=== PATIENT | female | born 1945 | race Caucasian/White ===

== ENCOUNTER → 2017-01-04 | Day surgery (SDC) | payer MEDICARE ==
[~2017-01-04] VITALS: Ht 170.2 cm; Wt 55.3 kg
[~2017-01-04] MED LIST: 0.9% Sodium Chloride 1,000 ML IV SCH; DULO60CA42 PO; Sodium Chloride LOK Flush 10 mL Syringe IV PRN; fentaNYL-PF 50 mCg/mL 2 mL Inj IVPUSH PRN; fentaNYL-PF 50 mCg/mL 2 mL Inj ONE
[2017-01-04 10:47] VITALS: BP 127/57; PULSE 92; RESP 14; O2SAT 99
[2017-01-04 12:14] VITALS: BP 123/61; PULSE 85; RESP 16; O2SAT 98
[2017-01-04 12:25] VITALS: BP 122/52; PULSE 83; RESP 16; O2SAT 96
[2017-01-04 12:33] VITALS: BP 107/47; PULSE 88; RESP 16; O2SAT 96
--- NOTE | 2017-01-04 13:20 | ENDO ---
[address] [address] ENDOSCOPY PROCEDURE PATIENT: CASANDRA JOYNER : 1945 MR#: [id number] ADMIT: 01/04/2017 JOB ID: [id number] DATE: 01/04/2017 PRIMARY PROVIDER: Brianna Pollock. PROCEDURE: Colonoscopy with biopsies. INDICATIONS: A 71-year-old female with diarrhea of uncertain etiology. EQUIPMENT: PCF H 180 AL. SEDATION: 1. 6 mg Versed. 2. 100 mcg fentanyl. COMPLICATIONS: None identified. BOWEL PREPARATION: Very adequate. PROCEDURAL INFORMATION: After the risks and benefits were explained, written and verbal informed consent was obtained. The patient was brought into the endoscopy suite and placed into the left lateral decubitus position. Sedation was achieved using the above-stated medications with the addition of oxygen via nasal cannula. A digital rectal examination was accomplished and no significant pathology appreciated. Mild internal hemorrhoids. The scope was introduced into the rectum and advanced to the cecum as identified by the appendiceal orifice and ileocecal valve. The terminal ileum was briefly accessed. The scope then slowly withdrawn to carefully examine the mucosa for any defects or lesions. Multiple direct views were made through the dentate line for exclusion of pathology. The colon was decompressed. The scope removed from the patient who tolerated the procedure well. FINDINGS: The patient had a moderately tortuous challenging navigation through the sigmoid region. The terminal ileum appeared visually normal. I did not see any evidence of macroscopic colitis. Random colon biopsies were taken for exclusion of microscopic disease in light of the patient's history. ENDOSCOPIC DIAGNOSES: Visually unremarkable colonoscopy to cecum. RECOMMENDATIONS: 1. Await histopathology. 2. Followup in GI clinic with Josy Phipps in the next week or so.
--- NOTE | 2017-01-06 09:57 | PATH ---
SURGICAL PATHOLOGY Attending Physician:Ibrahima Mcdonough CASE STATUS: Signed Out PATIENT NAME: CASANDRA JOYNER PID: [id number] : 1945 DATE COLLECTED:01/04/2017 23:42 SPECIMEN: Colon, Biopsy CLINICAL HISTORY: DIARRHEA 1). RANDOM COLON BIOPSY FINAL DIAGNOSIS: Random Colon Biopsy: - Colonic mucosa with increased intraepithelial lymphocytes, consistent with lymphocytic colitis. - Negative for dysplasia and malignancy. ICD10: K53.89 NOTE: As part of routine air quality engineer, the case was reviewed by Dr. Ken, who agrees with the above interpretation. GROSS DESCRIPTION: The specimen is received in one formalin filled container labeled with the patient's name, sub labeled "random colon" and consists of 3 portions of tissue which aggregate to 0.2 x 0.2 x 0.2 CM. The specimen is entirely submitted in one cassette. 01/05/2017CO ICD-9 CODES: CPT CODES: 1: 23468 Electronically Signed Out Jack Johnson MD [facility] Pathology [facility] [address], [place] [address] Technical component performed at [facility], [address] [place] [address] Ave[address], [address]
== END | disposition home or self-care (01) ==
LOC: END 00:49
PROVIDERS: ATTEND Internal Medicine Gastroenterology
DX: R19.7 Diarrhea, unspecified (principal); K52.832 Lymphocytic colitis; K64.8 Other hemorrhoids; F33.9 Major depressive disorder, recurrent, unspecified
CPT/HCPCS: 45380; G0500; J2250; J3010; J7030